=== PATIENT | female | born 1995 | race Caucasian/White ===

== ENCOUNTER 2022-11-11 18:53 | Emergency (ER) | payer OTHER ==
[~2022-11-11] VITALS: Ht 149.9 cm; Wt 43.1 kg
[2022-11-11] MEDS ORDERED: HYD1C TP (19:16)
[2022-11-11 19:20] VITALS: BP 125/84
--- NOTE | 2022-11-11 19:30 | NUR ---
SEEN AND EXAMINED BY GIANCARLO
[2022-11-11 19:39] VITALS: BP 125/84
--- NOTE | 2022-11-11 19:39 | NUR ---
Patient discharged with v/s stable. Written and verbal after care instructions given and explained. Patient alert, oriented and verbalized understanding of instructions. Ambulatory with steady gait. All questions addressed prior to discharge. ID band removed. Patient advised to follow up with PMD. Rx of HYDROCORTISONE given. Patient educated on indication of medication including possible reaction and side effects. Opportunity to ask questions provided and answered.
== END 2022-11-11 19:39 | disposition home or self-care (01) ==
LOC: MED 18:53
DX: R21 Rash and other nonspecific skin eruption (principal)
CPT/HCPCS: 99282